=== PATIENT | female | born 1995 | race African-American/Black ===

== ENCOUNTER 2016-10-31 16:22 | Emergency (ER) | payer MEDICAID ==
--- NOTE | 2016-10-31 16:50 | ER Document Report ---
ED General - General Chief Complaint: Vaginal Discharge Stated Complaint: VAGINAL DISCHARGE W/ Mode of Arrival: Ambulatory Information source: Patient Notes: Patient is a 21 year old female who presents with 2 day history of vaginal discharge, described as thick, yellow and malodorous. She is , currently 9 months . She denies any abdominal pain, fever, chills, LOF, vaginal bleeding, contractions. Endorses normal movement. She called her OBGYN who suggested her symptoms sounded like bacterial/yeast infection and was not able to see her today, suggested she come to the ED. TRAVEL OUTSIDE OF THE [place] IN LAST 30 DAYS: No - Related Data Allergies/Adverse Reactions: No Known Allergies Allergy (Unverified 04/06/13 12:56) Past Medical History - Social History Smoking Status: Unknown if Ever Smoked Chew tobacco use (# tins/day): No Frequency of alcohol use: None Drug Abuse: None Family History: Other - mother with migraine FLOYD and irreg heart beats Neurological Medical History: Denies: Hx Seizures Renal/ Medical History: Denies: Hx Peritoneal Dialysis Surgical Hx: Negative - Immunizations Immunizations up to date: Yes Hx Diphtheria, Pertussis, Tetanus Vaccination: Yes Review of Systems - Review of Systems Constitutional: See HPI EENT: No symptoms reported Cardiovascular: No symptoms reported Respiratory: No symptoms reported Gastrointestinal: No symptoms reported Genitourinary: See HPI Female Genitourinary: See HPI Musculoskeletal: No symptoms reported Skin: No symptoms reported Hematologic/Lymphatic: No symptoms reported Neurological/Psychological: No symptoms reported Physical Exam - Vital signs Vitals: Temp Pulse Resp BP Pulse Ox 98.6 F 96 16 130/74 H 100 10/31/16 16:24 10/31/16 16:24 10/31/16 16:24 10/31/16 16:24 10/31/16 16:24 - Notes Notes: PHYSICAL EXAM: CONSTITUTIONAL: Alert and oriented, well-appearing and in no acute distress. HENT: Normocephalic, atraumatic. Trachea midline. Uvula midline. Moist mucous membranes. HEART: Regular rate and rhythm without murmurs. LUNGS: CTAB and equal. No wheezes, rales or rhonchi. GI: Gravid abdomen. Normactive bowel sounds. Nontender. No organomegaly. no CVAT. SURVEY COORDINATOR: External exam normal. No rashes or lesions. No vaginal discharge or vaginal bleeding. Cervix without lesions. No cervical motion tenderness. PSYCH: Normal mood, normal affect. SKIN: Warm and dry. Normal turgor. No rashes or lesions noted. Course - Re-evaluation Re-evalutation: 10/31/16 18:45 Patient seen and examined. Well-appearing, VSS, no respiratory distress. Gravid abdomen - no LOF, normal movement, no vaginal bleeding. With pelvic exam, no evidence of vaginal discharge. G/C pending. Wet prep was obtained but lab returned stating specimen wasn't properly prepared. Patient declined repeat exam. UA shows trace leuk est, 1 WBC, trace bacteria. Will treat with abx due to but advised to follow-up with OBGYN. At this time, will discharge with return precautions and follow-up recommendations. Verbal discharge instructions given at the bedside and opportunity for questions given. Medication warnings reviewed. Patient is in agreement with this plan and has verbalized understanding of return precautions and the need for primary care follow-up in the next 24-72 hours. - Vital Signs Vital signs: Temp Pulse Resp BP Pulse Ox 98.6 F 96 16 130/74 H 100 10/31/16 16:24 10/31/16 16:24 10/31/16 16:24 10/31/16 16:24 10/31/16 16:24 - Laboratory Laboratory results interpreted by me: 10/31/16 17:40 Ur Leukocyte Esterase TRACE H Procedures - Pelvic Exam Pelvic exam Cultures obtained: Yes Wet prep obtained: Yes - returned from lab, specimen not prepared properly. Patient declined repeat. Herpes culture obtained: No POC sent to lab: Yes Witnessed by: Daphne Mayberry RN Discharge - Discharge Clinical Impression: UTI (urinary tract infection) in in third trimester Condition: Stable Disposition: HOME, SELF-CARE Additional Instructions: We recommend that you follow-up with your OBGYN. There are swabs pending for gonorrhea and chlamydia - you will be called if these are positive. You will not be called if negative. Your exam did not reveal discharge so you were note treated at this time. URINARY TRACT INFECTION: Your evaluation indicates that you have a urinary tract infection. This is due to germs growing in the bladder. This is a common problem. This infection usually responds quickly to antibiotics. Your antibiotic should be taken exactly as prescribed. Drink plenty of fluids -- three to four quarts a day. Occasionally, a bladder anesthetic will be prescribed to help stop the feeling of urgency until the antibiotic has a chance to clear the infection. This may cause your urine to be dark orange. Certain urine infections require a culture. If the doctor obtained a culture, the results will be back in two days. You should call to see if a change in treatment is needed. A repeat urinalysis after you finish treatment is often recommended. The physician will let you know if further testing is required. Call the doctor if you develop fever, chills, flank pain, inability to urinate, or blood in the urine. ANTIBIOTIC THERAPY: You have been given an antibiotic prescription. It's important that you take all the medication, unless instructed otherwise by your physician. Failure to complete the entire course can result in relapse of your condition. Common side effects of antibiotics include nausea, intestinal cramping, or diarrhea. Women may develop vaginal yeast infections, and babies can get yeast (thrush) in the mouth following the use of antibiotics. Contact your physician if you develop significant side effects from this medication. Allergy to this antibiotic can result in hives, wheezing, faintness, or itching. If symptoms of allergy occur, stop the medication and call the doctor. CEPHALEXIN: The antibiotic you've been prescribed is a member of the cephalosporin class. This type of antibiotic covers a wide variety of infections, including those of the skin, lungs, and urinary tract. It's useful for staph infections. This antibiotic is slightly similar to the penicillin family. In rare cases , a person who is allergic to penicillin will also be allergic to this medication. If you have had a severe allergic reaction to penicillin, and have not taken this antibiotic since that time, notify your doctor. Antibiotics which cover many germs ("broad spectrum" antibiotics) are more likely to cause diarrhea or "yeast" infections. Women prone to vaginal yeast problems may suffer an attack after taking this antibiotic. In infants, oral thrush (white spots "stuck" on the cheek) or yeast diaper rash may result. See your doctor if these problems occur. Call at once if you develop itching, hives , shortness of breath, or lightheadedness. FOLLOW-UP CARE: If you have been referred to a physician for follow-up care, call the physician s office for an appointment as you were instructed or within the next two days. If you experience worsening or a significant change in your symptoms, notify the physician immediately or return to the Emergency Department at any time for re-evaluation. Prescriptions: Cephalexin Monohydrate [Keflex 500 mg Capsule] 500 mg PO Q12H 5 Days
[2016-10-31 18:31] LABS: APPEARANCE,URINE CLEAR; BILIRUBIN,URINE NEGATIVE (NEGATIVE); GLUCOSE, URINE NEGATIVE (NEGATIVE); KETONES,URINE NEGATIVE (NEGATIVE); LEUKOCYTE ESTERASE,URINE TRACE (NEGATIVE); NITRITE,URINE NEGATIVE (NEGATIVE); PROTEIN,URINE NEGATIVE (NEGATIVE); URINE SPECIFIC GRAVITY 1.005; UROBILINOGEN,URINE NEGATIVE mg/dL (<2.0)
[2016-10-31 18:58] VITALS: BP 100/55
[2016-10-31 19:48] LABS: CHLAM PCR NOT DETECTED (NOT DETECT)
== END 2016-10-31 18:56 | disposition home or self-care (01) ==
LOC: ER 16:22
DX: O23.43 Unspecified infection of urinary tract in pregnancy, third trimester (principal); N89.8 Other specified noninflammatory disorders of vagina; Z3A.40 40 weeks gestation of pregnancy
CPT/HCPCS: 81001; 87491; 87591; 99284

== ENCOUNTER 2017-01-01 12:19 | Inpatient (IN) | payer MEDICAID ==
[2017-01-01 13:40] LABS: APPEARANCE,URINE SLIGHTLY-CLOUDY; BILIRUBIN,URINE NEGATIVE (NEGATIVE); GLUCOSE, URINE NEGATIVE (NEGATIVE); KETONES,URINE NEGATIVE (NEGATIVE); LEUKOCYTE ESTERASE,URINE NEGATIVE (NEGATIVE); NITRITE,URINE NEGATIVE (NEGATIVE); PROTEIN,URINE 100 mg/dL (NEGATIVE); URINE SPECIFIC GRAVITY 1.011; UROBILINOGEN,URINE NEGATIVE mg/dL (<2.0)
[2017-01-01 13:47] LABS: ABSOLUTE LYMPHOCYTES (AUTO) 1.4 10^3/uL (0.5-4.7); ABSOLUTE MONOCYTES (AUTO) 0.4 10^3/uL (0.1-1.4); ABSOLUTE NEUT (AUTO) 4.3 10^3/uL (1.7-8.2); BASOPHILS % (AUTO) 0.7 % (0-2); EOSINOPHILS % (AUTO) 0.2 % (0-6); HEMOGLOBIN 11.1 g/dL (12.0-15.5); HGB HCT DIFFERENCE -1.7; LYMPHOCYTES % (AUTO) 22.5 % (13-45); MEAN CORPUSCULAR HEMOGLOBIN 28.1 pg (27.0-33.4); MEAN CORPUSCULAR HGB CONC 31.6 g/dL (32.0-36.0); MEAN CORPUSCULAR VOLUME 89 fl (80-97); MONOCYTES % (AUTO) 7.2 % (3-13); RED BLOOD COUNT 3.93 10^6/uL (3.72-5.28); SEGMENTED NEUTROPHILS % (AUTO) 69.4 % (42-78); WHITE BLOOD COUNT 6.1 10^3/uL (4.0-10.5)
[2017-01-01 14:04] LABS: ALANINE AMINOTRANSFERASE 53 U/L (9-52); ALBUMIN 3.4 g/dL (3.5-5.0); ALKALINE PHOSPHATASE 247 U/L (38-126); ANION GAP 10 (5-19); ASPARTATE AMINO TRANSFERASE 46 U/L (14-36); BILIRUBIN,DIRECT 0.4 mg/dL (0.0-0.4); BILIRUBIN,TOTAL 0.6 mg/dL (0.2-1.3); BLOOD UREA NITROGEN 9 mg/dL (7-20); CALCIUM 9.1 mg/dL (8.4-10.2); CARBON DIOXIDE 22 mmol/L (22-30); CHLORIDE 108 mmol/L (98-107); CREATININE RESULT 0.76 mg/dL (0.52-1.25); GLUCOSE 90 mg/dL (75-110); LDH 585 U/L (313-618); TOTAL PROTEIN 6.7 g/dL (6.3-8.2); URIC ACID 4.8 mg/dL (2.5-6.2)
[2017-01-01] MEDS ORDERED: RINGERS SOLUTION,LACTATED 1,000 ML IV ONE (14:07)
[2017-01-01 14:49] LABS: URINE BARBITURATES SCREEN NEGATIVE; URINE METHADONE SCREEN NEGATIVE; URINE OPIATES LOW NEGATIVE; URINE PHENCYCLIDINE SCREEN NEGATIVE
[2017-01-01 15:05] LABS: URINE CREATININE 103.6 mg/dL (16-327); URINE PROTEIN 145.9 mg/dL (<12)
[2017-01-01] MEDS ORDERED: MISOPROSTOL 0.2 MG TABLET ONE (15:20)
[2017-01-01] MEDS ORDERED: OXYTOCIN/NORMAL SALINE 20 UNIT/1,000 ML RTUINJ ONE (15:20)
[2017-01-01] MEDS ORDERED: LIDOCAINE 1% INJ-PF (10 MG/ML) 30 ML SDV ONE (15:20)
[2017-01-01] MEDS: RINGERS SOLUTION,LACTATED 1,000 ML IV PRN (15:27)
[2017-01-01] MEDS ORDERED: OXYTOCIN/NORMAL SALINE 1,000 ML IV PRN (15:40)
[2017-01-01] MEDS ORDERED: MAGNESIUM SULFATE 4 GM/100 ML RTUPB IV ONE (17:02)
--- NOTE | 2017-01-01 17:03 | L&D Progress Notes ---
PROGRESS NOTES Datetime Report Generated by CPN: 01/01/2017 17:03 PROGRESS NOTE Impression: Gest. HTN/PreEclampsia/Eclampsia Procedures: Artificial ROM Comment: Several severe range bps noted as well as slightly elevated transaminases. Pt still comfortable. AROM clear. Dicussed magnesium seizure prophylaxis. Cont pit induction. VAGINAL EXAM Dilatation: 4 Dilatation: 4 Effacement: 70 Effacement: 70 Station: -1 Station: -1 FETUS A FHR Category: Category I SIGNATURE SIGNATURE: [id number] Signature: with User ID: [email or web address]
[2017-01-01] MEDS ORDERED: MAGNESIUM SULFATE 500 ML IV PRN (17:05)
[2017-01-01] MEDS ORDERED: MAGNESIUM SULFATE 100 ML IV ONE (17:05)
[2017-01-01] MEDS ORDERED: EPHEDRINE SULFATE INJ 50 MG/1 ML AMPULE ONE (18:01)
[2017-01-01] MEDS ORDERED: BUPIVACAINE HCL 0.25 % INJ/PF (2.5 MG/1 ML) 30 ML VIAL ONE (18:01)
[2017-01-01] MEDS ORDERED: FENTANYL CITRATE INJ/PF 100 MCG/2 ML AMPUL ONE (18:01)
[2017-01-01] MEDS ORDERED: PHENYLEPHRINE HCL INJ/PF 10 MG/1 ML SDV ONE (18:01)
[2017-01-01] MEDS ORDERED: FENTANYL/BUPIVACAINE/NS/PF 200 MCG/100 ML RTUINJ EPI ONE (18:01)
--- NOTE | 2017-01-01 18:41 | L&D Progress Notes ---
PROGRESS NOTES Datetime Report Generated by CPN: 01/01/2017 18:41 PROGRESS NOTE Impression: Normal Progression of Labor; Gest. HTN/PreEclampsia/Eclampsia Procedures: Sterile Vag Exam Plan: Continue Present Management Comment: cont magnesium seizure prophylaxis and pit induction...pt comfortable with epidural VAGINAL EXAM Dilatation: 6 Effacement: 100 Station: 0 FETUS A FHR Category: Category I FETUS C SIGNATURE: [id number] Signature: with User ID: [email or web address]
--- NOTE | 2017-01-01 20:23 | L&D Progress Notes ---
PROGRESS NOTES Datetime Report Generated by CPN: 01/01/2017 20:22 PROGRESS NOTE Impression: Gest. HTN/PreEclampsia/Eclampsia Procedures: Intrauterine Pressure Catheter Plan: Continue Present Management Informed Consent Obtained: Vaginal Delivery; Section Delivery Comment: IUPC placed to monitor for adquacy of ctxs as no significant environmental change analyst past 1.5 hrs. Check preeclampsia labs now. Discussed r/b/a if need arises. FETUS A FHR Comments: variables noted but overall reassuring FETUS C SIGNATURE: [id number] Signature: with User ID: [email or web address]
[2017-01-01 21:27] LABS: ABSOLUTE LYMPHOCYTES (AUTO) 1.2 10^3/uL (0.5-4.7); ABSOLUTE MONOCYTES (AUTO) 0.7 10^3/uL (0.1-1.4); ABSOLUTE NEUT (AUTO) 12.5 10^3/uL (1.7-8.2); BASOPHILS % (AUTO) 0.3 % (0-2); HEMATOCRIT 35.4 % (36.0-47.0); HEMOGLOBIN 11.1 g/dL (12.0-15.5); HGB HCT DIFFERENCE -2.1; LYMPHOCYTES % (AUTO) 8.6 % (13-45); MEAN CORPUSCULAR HEMOGLOBIN 27.7 pg (27.0-33.4); MEAN CORPUSCULAR HGB CONC 31.5 g/dL (32.0-36.0); MEAN CORPUSCULAR VOLUME 88 fl (80-97); MONOCYTES % (AUTO) 5.1 % (3-13); RED BLOOD COUNT 4.02 10^6/uL (3.72-5.28)
[2017-01-01] MEDS ORDERED: CARBOPROST TROMETHAMINE INJ 250 MCG/1 ML AMPULE ONE (21:28)
[2017-01-01 21:33] LABS: PROTHROMBIN TIME 12.3 SEC (11.4-15.4)
[2017-01-01 21:34] LABS: PARTIAL THROMBOPLASTIN TIME 24.9 SEC (23.5-35.8); WHITE BLOOD COUNT 14.5 10^3/uL (4.0-10.5)
[2017-01-01 21:54] LABS: ALANINE AMINOTRANSFERASE 61 U/L (9-52); ALBUMIN 3.5 g/dL (3.5-5.0); ALKALINE PHOSPHATASE 309 U/L (38-126); ANION GAP 12 (5-19); ASPARTATE AMINO TRANSFERASE 51 U/L (14-36); BILIRUBIN,DIRECT 0.4 mg/dL (0.0-0.4); BILIRUBIN,TOTAL 0.5 mg/dL (0.2-1.3); BLOOD UREA NITROGEN 8 mg/dL (7-20); CARBON DIOXIDE 19 mmol/L (22-30); CHLORIDE 106 mmol/L (98-107); CREATININE RESULT 0.77 mg/dL (0.52-1.25); GLUCOSE 80 mg/dL (75-110); LDH 605 U/L (313-618); POTASSIUM 3.6 mmol/L (3.6-5.0); SODIUM 136.5 mmol/L (137-145); TOTAL PROTEIN 6.6 g/dL (6.3-8.2)
[2017-01-01] MEDS ORDERED: LABETALOL HCL INJ 20 MG/4 ML DISP.SYRIN IV ONE ×3 (22:41→23:45)
[2017-01-01] MEDS ORDERED: IBUPROFEN 800 MG TABLET ONE (22:57)
[2017-01-01] MEDS ORDERED: OXYTOCIN/NORMAL SALINE 20 UNIT/1,000 ML RTUINJ IV PRN (23:44)
[2017-01-01] MEDS ORDERED: ACETAMINOPHEN WITH CODEINE #3 TABLET PO PRN ×2 (23:44)
[2017-01-01] MEDS ORDERED: DIPH/PERTUSS(ACELL)/TETANUS VAC/PF 0.5 ML SYR (>=10YO) IM PRN (23:44)
[2017-01-01] MEDS ORDERED: ZOLPIDEM TARTRATE 5 MG TABLET PO PRN (23:44)
[2017-01-01] MEDS ORDERED: MEASLES,MUMPS&RUBELLA VACC/PF 0.5 ML VIAL SUBCUT PRN (23:44)
[2017-01-01] MEDS ORDERED: DIBUCAINE 1% OINTMENT 28 GM TP PRN (23:44)
[2017-01-01] MEDS ORDERED: BENZOCAINE/MENTHOL AEROSOL SPRAY 56 ML TOP PRN (23:44)
--- NOTE | 2017-01-02 00:54 | Delivery Summary ---
Del Sum A-C Datetime Report Generated by CPN: 01/02/2017 00:53 DELIVERY PERSONNEL DELIVERY PERSONNEL: [id number] Delivery Doctor:: Laura Nino MD Labor and Delivery Nurse:: Tenisha Merritt RN Nursery Nurse:: Lindsey Beltran RN MSN Field Operations Manager/CERAMICS TEST ENGINEER: JANETH PerezA MATERNAL INFORMATION Delivery Anesthesia: Epidural Medications After Delivery: Pitocin Bolus-Please Comment Meds After Delivery Comment: cytotec 1000 mcg pitocin 20 units/1000ml NSS Estimated Blood Loss (ml): 250 Maternal Complications: Other Other Maternal Complications: Pre-eclamptic on Magnesium Sulfate Provider Comments: When pt complete and pushing at +2 to +3 station, increased bleeding and late decels noted suspicous for abruption. Oxygen placed and repositioned but lates persisted. Kiwi vac applied at pulled over 2 ctxs with no pop offs to delivery of head JASWINDER.Max pressure 550. Shoulders and body delivered easily thereafter. Cord clamped and cut. Placenta spont and intact. Female infant with apgars 9 and 9. Cytotec 1000mcg placed per rectum prophylactically and iglesias cath replaced. Pt to be continued on magnesium. LABOR SUMMARY EDC: 12/26/2016 00:00 No. Babies in Womb: 1 Attempted: No Labor Anesthesia: Epidural LABOR INFORMATION Reason for Induction: Pre-Eclampsia Onset of Labor: 01/01/2017 18:37 Complete Dilatation: 01/01/2017 21:39 Oxytocin: Induction Group B Beta Strep: negative Antibiotics # of Doses: n/a Antibiotics Time of Last Dose: n/a Name of Antibiotic Given: n/a Steroids Given: None Reason Steroids Not Administered: Not Applicable MEMBRANES Membranes Rupture Method: Artificial Rupture of Membranes: 01/01/2017 16:56 Length of Rupture (hr): 5.12 Amniotic Fluid Color: Clear Amniotic Fluid Amount: Small Amniotic Fluid Odor: Normal STAGES OF LABOR Stage 1 hr: 3 Stage 1 min: 2 Stage 2 hr: 0 Stage 2 min: 24 Stage 3 hr: 0 Stage 3 min: 3 Total Time in Labor hr: 3 Total Time in Labor min: 29 VAGINAL DELIVERY Episiotomy: None Laceration Type: None BABY A INFORMATION Infant Delivery Date/Time: 01/01/2017 22:03 Method of Delivery: Vaginal Born in Route : No : N/A Forceps: N/A Vacuum Extraction: Successful Shoulder Dystocia : No ASSISTED DELIVERY BABY A Indication for Assisted Delivery: Late deceleration Catheter Prior to Procedure: Yes Vacuum Number of Pulls: 2 Vacuum Number of PopOffs: 0 Vacuum Maximum Pressure Obtained: 550 Reduce Pressure btwn Ctx: Yes Vacuum Pen Tender: kiwi Total Time Vacuum Applied: 1 min PRESENTATION/POSITION BABY A Presentation: Cephalic Cephalic Presentation: Vertex Vertex Position: Right Occipital Anterior Breech Presentation: N/A PLACENTA INFORMATION BABY A Placenta Delivery Time : 01/01/2017 22:06 Placenta Method of Delivery: Spontaneous Placenta Status: Delivered SCORES BABY A Heart Rate 1 min: >100 bpm Resp Effort 1 min: Good Cry Reflex Irritability 1 min: Cough or Sneeze or Pulls Away Muscle Tone 1 min: Active Motion Color 1 min: Body [place], Extremities Blue Resuscitation Effort 1 min: Tactile Stimulation SCORE 1 MIN: 9 Heart Rate 5 min: >100 bpm Resp Effort 5 min: Good Cry Reflex Irritability 5 min: Cough or Sneeze or Pulls Away Muscle Tone 5 min: Active Motion Color 5 min: Body [place], Extremities Blue Resuscitation Effort 5 min: Tactile Stimulation SCORE 5 MIN: 9 INFORMATION BABY A Gestational Age at Delivery: 40.6 Gestational Status: Full Term- 39- 40.6 Weeks Infant Outcome : Liveborn Infant Condition : Stable Sex: Female IDENTIFICATION BABY A Infant Verification Date/Time: 01/01/2017 22:08 ID Band Number: [id number] Mother's Name Verified: Yes RN Verifying : J , RN Additional Verifying Personnel: MUKUL Gilbert WEIGHT/LENGTH BABY A Infant Birthweight (gm): 3145 Infant Weight (lb): 6 Infant Weight (oz): 15 Infant Length (in): 20.00 Length (cm): 50.80 CORD INFORMATION BABY A No. Cord Vessels: 3 Nuchal Cord : N/A Cord Blood Taken: Yes-For Eval (Mom's Blood Type - or O+) Infant Suction: None ASSESSMENT BABY A Skin to Skin: Yes Skin to Skin Time (min): 60 SIGNATURES Signature: with User ID: [email or web address]
[2017-01-02 07:08] LABS: HEMATOCRIT 32.5 % (36.0-47.0); HEMOGLOBIN 10.5 g/dL (12.0-15.5); MEAN CORPUSCULAR HEMOGLOBIN 28.1 pg (27.0-33.4); MEAN CORPUSCULAR HGB CONC 32.2 g/dL (32.0-36.0); MEAN CORPUSCULAR VOLUME 87 fl (80-97); RED BLOOD COUNT 3.72 10^6/uL (3.72-5.28); RED CELL DISTRIBUTION WIDTH 17.1 % (11.5-14.0)
[2017-01-02 07:21] LABS: ALANINE AMINOTRANSFERASE 64 U/L (9-52); ALBUMIN 2.7 g/dL (3.5-5.0); ALKALINE PHOSPHATASE 230 U/L (38-126); ANION GAP 8 (5-19); ASPARTATE AMINO TRANSFERASE 75 U/L (14-36); BILIRUBIN,DIRECT 0.3 mg/dL (0.0-0.4); BILIRUBIN,TOTAL 0.4 mg/dL (0.2-1.3); BLOOD UREA NITROGEN 7 mg/dL (7-20); CALCIUM 7.4 mg/dL (8.4-10.2); CARBON DIOXIDE 21 mmol/L (22-30); CHLORIDE 106 mmol/L (98-107); CREATININE RESULT 0.75 mg/dL (0.52-1.25); GLUCOSE 89 mg/dL (75-110); LDH 784 U/L (313-618); POTASSIUM 3.8 mmol/L (3.6-5.0); SODIUM 135.4 mmol/L (137-145); TOTAL PROTEIN 5.4 g/dL (6.3-8.2)
[2017-01-02 07:22] LABS: PROTHROMBIN TIME 12.9 SEC (11.4-15.4)
[2017-01-02 07:23] LABS: PARTIAL THROMBOPLASTIN TIME 29.3 SEC (23.5-35.8)
[2017-01-02] MEDS ORDERED: DOCUSATE SODIUM 100 MG CAPSULE ONE ×2 (10:47→18:29)
[2017-01-02] MEDS ORDERED: PRENATAL VITAMIN W-O CA NO5/FE FUMARATE/FA CAPSULE ONE (10:49)
[2017-01-02] MEDS ORDERED: FERROUS SULFATE 325 MG TABLET PO ONE ×2 (10:50→18:29)
[2017-01-02] MEDS ORDERED: SENNOSIDES/DOCUSATE 8.6-50 MG 1 EACH TABLET ONE (10:50)
[2017-01-02] MEDS: FERROUS SULFATE 325 MG TABLET PO SCH ×2 (10:53→18:30)
[2017-01-02] MEDS: PRENATAL VITAMIN W-O CA NO5/FE FUMARATE/FA CAPSULE PO SCH (10:53)
[2017-01-02] MEDS: SENNOSIDES/DOCUSATE 8.6-50 MG 1 EACH TABLET PO SCH (10:53)
[2017-01-02] MEDS: DOCUSATE SODIUM 100 MG CAPSULE PO SCH ×2 (10:54→18:29)
[2017-01-02] MEDS ORDERED: NIFEDIPINE 30 MG TAB.ER.24 PO ONE ×2 (13:20→13:43)
[2017-01-02] MEDS ORDERED: NIFEDIPINE 30 MG TAB.ER.24 PO SCH (13:22)
[2017-01-02] MEDS: IBUPROFEN 800 MG TABLET PO SCH ×2 (13:30→13:44)
[2017-01-02] MEDS ORDERED: IBUPROFEN 800 MG TABLET ONE (13:43)
[2017-01-02] MEDS ORDERED: HYDRALAZINE HCL INJ/PF 20 MG/1 ML SDV ONE (14:17)
[2017-01-02] MEDS ORDERED: HYDRALAZINE HCL INJ/PF 20 MG/1 ML SDV IV ONE (14:43)
[2017-01-02 15:44] LABS: ABSOLUTE LYMPHOCYTES (AUTO) 1.4 10^3/uL (0.5-4.7); ABSOLUTE MONOCYTES (AUTO) 0.9 10^3/uL (0.1-1.4); BASOPHILS % (AUTO) 0.2 % (0-2); HEMATOCRIT 32.8 % (36.0-47.0); HEMOGLOBIN 10.6 g/dL (12.0-15.5); LYMPHOCYTES % (AUTO) 12.3 % (13-45); MEAN CORPUSCULAR HEMOGLOBIN 28.1 pg (27.0-33.4); MEAN CORPUSCULAR HGB CONC 32.1 g/dL (32.0-36.0); MEAN CORPUSCULAR VOLUME 88 fl (80-97); MONOCYTES % (AUTO) 7.9 % (3-13); RED BLOOD COUNT 3.75 10^6/uL (3.72-5.28); RED CELL DISTRIBUTION WIDTH 17.3 % (11.5-14.0); SEGMENTED NEUTROPHILS % (AUTO) 79.6 % (42-78); WHITE BLOOD COUNT 11.3 10^3/uL (4.0-10.5)
[2017-01-02 15:58] LABS: ALANINE AMINOTRANSFERASE 74 U/L (9-52); ALBUMIN 2.7 g/dL (3.5-5.0); ALKALINE PHOSPHATASE 220 U/L (38-126); ANION GAP 6 (5-19); ASPARTATE AMINO TRANSFERASE 96 U/L (14-36); BILIRUBIN,DIRECT 0.3 mg/dL (0.0-0.4); BILIRUBIN,TOTAL 0.9 mg/dL (0.2-1.3); BLOOD UREA NITROGEN 6 mg/dL (7-20); CALCIUM 7.6 mg/dL (8.4-10.2); CARBON DIOXIDE 23 mmol/L (22-30); CHLORIDE 107 mmol/L (98-107); CREATININE RESULT 0.76 mg/dL (0.52-1.25); GLUCOSE 71 mg/dL (75-110); POTASSIUM 4.1 mmol/L (3.6-5.0); SODIUM 135.9 mmol/L (137-145); TOTAL PROTEIN 5.5 g/dL (6.3-8.2); URIC ACID 4.9 mg/dL (2.5-6.2)
[2017-01-02 20:03] LABS: ABSOLUTE LYMPHOCYTES (AUTO) 1.6 10^3/uL (0.5-4.7); ABSOLUTE MONOCYTES (AUTO) 0.9 10^3/uL (0.1-1.4); ABSOLUTE NEUT (AUTO) 8.4 10^3/uL (1.7-8.2); BASOPHILS % (AUTO) 0.3 % (0-2); HEMOGLOBIN 10.6 g/dL (12.0-15.5); HGB HCT DIFFERENCE -1.2; LYMPHOCYTES % (AUTO) 14.4 % (13-45); MEAN CORPUSCULAR HEMOGLOBIN 28.4 pg (27.0-33.4); MEAN CORPUSCULAR HGB CONC 32.2 g/dL (32.0-36.0); MEAN CORPUSCULAR VOLUME 88 fl (80-97); RED BLOOD COUNT 3.74 10^6/uL (3.72-5.28); RED CELL DISTRIBUTION WIDTH 17.2 % (11.5-14.0); SEGMENTED NEUTROPHILS % (AUTO) 77.3 % (42-78); WHITE BLOOD COUNT 10.9 10^3/uL (4.0-10.5)
[2017-01-02 20:21] LABS: ALANINE AMINOTRANSFERASE 71 U/L (9-52); ALBUMIN 2.6 g/dL (3.5-5.0); ALKALINE PHOSPHATASE 194 U/L (38-126); ANION GAP 8 (5-19); ASPARTATE AMINO TRANSFERASE 86 U/L (14-36); BILIRUBIN,DIRECT 0.3 mg/dL (0.0-0.4); BILIRUBIN,TOTAL 0.7 mg/dL (0.2-1.3); BLOOD UREA NITROGEN 9 mg/dL (7-20); CALCIUM 7.9 mg/dL (8.4-10.2); CARBON DIOXIDE 22 mmol/L (22-30); CHLORIDE 106 mmol/L (98-107); CREATININE RESULT 0.88 mg/dL (0.52-1.25); GLUCOSE 82 mg/dL (75-110); POTASSIUM 4.1 mmol/L (3.6-5.0); SODIUM 136.3 mmol/L (137-145); TOTAL PROTEIN 5.3 g/dL (6.3-8.2); URIC ACID 5.4 mg/dL (2.5-6.2)
[2017-01-03] MEDS: RINGERS SOLUTION,LACTATED 1,000 ML IV PRN (00:08)
[2017-01-03 01:01] LABS: ABSOLUTE BASOPHILS # (AUTO) 0.1 10^3/uL (0.0-0.2); ABSOLUTE LYMPHOCYTES (AUTO) 2.1 10^3/uL (0.5-4.7); ABSOLUTE MONOCYTES (AUTO) 0.9 10^3/uL (0.1-1.4); ABSOLUTE NEUT (AUTO) 8.3 10^3/uL (1.7-8.2); BASOPHILS % (AUTO) 0.6 % (0-2); HEMATOCRIT 33.3 % (36.0-47.0); HEMOGLOBIN 10.6 g/dL (12.0-15.5); HGB HCT DIFFERENCE -1.5; LYMPHOCYTES % (AUTO) 18.5 % (13-45); MEAN CORPUSCULAR HEMOGLOBIN 28.2 pg (27.0-33.4); MEAN CORPUSCULAR VOLUME 88 fl (80-97); MONOCYTES % (AUTO) 7.8 % (3-13); RED BLOOD COUNT 3.77 10^6/uL (3.72-5.28); RED CELL DISTRIBUTION WIDTH 17.2 % (11.5-14.0); SEGMENTED NEUTROPHILS % (AUTO) 73.1 % (42-78); WHITE BLOOD COUNT 11.4 10^3/uL (4.0-10.5)
[2017-01-03 01:19] LABS: ALANINE AMINOTRANSFERASE 70 U/L (9-52); ALBUMIN 2.6 g/dL (3.5-5.0); ALKALINE PHOSPHATASE 186 U/L (38-126); ANION GAP 6 (5-19); ASPARTATE AMINO TRANSFERASE 79 U/L (14-36); BILIRUBIN,DIRECT 0.3 mg/dL (0.0-0.4); BILIRUBIN,TOTAL 0.8 mg/dL (0.2-1.3); BLOOD UREA NITROGEN 11 mg/dL (7-20); CALCIUM 7.6 mg/dL (8.4-10.2); CARBON DIOXIDE 24 mmol/L (22-30); CHLORIDE 107 mmol/L (98-107); CREATININE RESULT 0.85 mg/dL (0.52-1.25); GLUCOSE 82 mg/dL (75-110); SODIUM 136.9 mmol/L (137-145); TOTAL PROTEIN 4.9 g/dL (6.3-8.2); URIC ACID 4.9 mg/dL (2.5-6.2)
[2017-01-03] MEDS ORDERED: NIFEDIPINE 30 MG TAB.ER.24 PO ONE ×2 (02:59→03:10)
--- NOTE | 2017-01-03 05:58 | Admission Physical ---
Datetime Report Generated by CPN: 01/03/2017 05:58 CURRENT ADMISSION Hx Assessment: The History has been Reviewed and is Current Chief Complaint: Signs/Symptoms Gestational HTN Indication for Induction- Other: preeclampsia vs ghtn Admit Plan: Initiate Labor Induction Protocol ALLERGIES Medication Allergies: No Medication Allergies: No Known Allergies (01/01/2017) Medication Allergies: No Known Allergies (04/06/2013) Latex: No Latex Allergies OBSTETRICAL HISTORY EDC: 12/26/2016 00:00 : 1 Para: 0 Term: 0 : 0 SAB: 0 IAB: 0 Ectopic: 0 Livin Cesareans: 0 VBACs: 0 Multiple Births: 0 Gestational Diabetes: No Rh Sensitization: No Incompetent Cervix: No HARVEY: No Infertility: No ART Treatment: No Uterine Anomaly: No IUGR: No Hx Previous C/S: No Macrosomia: No Hx Loss/Stillborn: No PIH: No Hx : No Placenta Previa/Abruption: No Depression/PP Depression: No PTL/PROM: No Post Hemorrhage: No Current Procedures: Ultrasound; NST Obstetrical History Comments: G1: Current SEE RECORDS Alcohol: No Marijuana : No Cocaine: No Other Illicit Drugs: No Cigarettes: Never Smoker. [id number] MEDICAL HISTORY Diabetes: No Blood Transfusion: No Pulmonary Disease (Asthma, TB): No Breast Disease: No Hypertension: No Manager Drilling Surgery: No Heart Disease: No Hosp/Surgery: No Autoimmune Disorder: No Anesthetic Complications: No Kidney Disease: No Abnormal Pap Smear: No Neuro/Epilepsy: No Psychiatric Disorders: No Other Medical Diseases: No Hepatitis/Liver Disease: No Significant Family History: No Varicosities/Phlebitis: No Trauma/Violence : No Thyroid Dysfunction: No INFECTIOUS HISTORY Gonorrhea: No Genital Herpes: No Chlamydia: No Tuberculosis: No Syphilis: No Hepatitis: No HIV/AIDS Exposure: No Rash or Viral Illness: No HPV: No PHYSICAL EXAM General: Normal HEENT: Normal Neurologic: Normal Thyroid: Normal Heart: Normal Lungs: Normal Breast: Normal Back: Normal Abdomen: Normal Genitourinary Exam: Normal Extremities: Normal DTRs: Normal Pelvic Type: Adequate Physical Exam Comments: gbs neg efw 6 1/2 pounds VAGINAL EXAM Dilatation: 6 Dilatation: 4 Dilatation: 4 Effacement: 100 Effacement: 70 Effacement: 70 Station: 0 Station: -1 Station: -1 FETUS A EGA: 40.6 FHR Category: Category I Admit Comment: IUP at 40.6 wks with ghtn vs preeclampsia-plan pit induction...magnesium if recurrent severe range pressures PLANS FOR LABOR AND DELIVERY Labor and Delivery: None Pain Management: Epidural Feeding Preference: Breast Benefit of Breast Feed Discussed: Yes Circumcision: N/A INFORMED CONSENT Informed Consent Obtained: Vaginal Delivery; Section Delivery Signature: with User ID: [email or web address]
[2017-01-03] MEDS: IBUPROFEN 800 MG TABLET PO SCH ×4 (06:44→21:55)
[2017-01-03 09:33] LABS: HEMATOCRIT 32.6 % (36.0-47.0); HEMOGLOBIN 10.5 g/dL (12.0-15.5); HGB HCT DIFFERENCE -1.1; MEAN CORPUSCULAR HGB CONC 32.2 g/dL (32.0-36.0); MEAN CORPUSCULAR VOLUME 87 fl (80-97); RED BLOOD COUNT 3.75 10^6/uL (3.72-5.28); RED CELL DISTRIBUTION WIDTH 17.1 % (11.5-14.0); WHITE BLOOD COUNT 11.1 10^3/uL (4.0-10.5)
[2017-01-03 09:34] LABS: ALANINE AMINOTRANSFERASE 78 U/L (9-52); ALBUMIN 2.7 g/dL (3.5-5.0); ALKALINE PHOSPHATASE 193 U/L (38-126); ANION GAP 7 (5-19); ASPARTATE AMINO TRANSFERASE 89 U/L (14-36); BILIRUBIN,DIRECT 0.3 mg/dL (0.0-0.4); BILIRUBIN,TOTAL 0.8 mg/dL (0.2-1.3); BLOOD UREA NITROGEN 9 mg/dL (7-20); CALCIUM 8.3 mg/dL (8.4-10.2); CARBON DIOXIDE 24 mmol/L (22-30); CHLORIDE 106 mmol/L (98-107); CREATININE RESULT 0.78 mg/dL (0.52-1.25); GLUCOSE 71 mg/dL (75-110); LDH 1283 U/L (313-618); POTASSIUM 4.2 mmol/L (3.6-5.0); SODIUM 137.1 mmol/L (137-145); TOTAL PROTEIN 5.5 g/dL (6.3-8.2); URIC ACID 4.9 mg/dL (2.5-6.2)
[2017-01-03] MEDS: SENNOSIDES/DOCUSATE 8.6-50 MG 1 EACH TABLET PO SCH (10:19)
[2017-01-03] MEDS: PRENATAL VITAMIN W-O CA NO5/FE FUMARATE/FA CAPSULE PO SCH (10:20)
[2017-01-03] MEDS: FERROUS SULFATE 325 MG TABLET PO SCH ×2 (10:20→18:20)
[2017-01-03] MEDS: DOCUSATE SODIUM 100 MG CAPSULE PO SCH ×2 (10:20→18:20)
--- NOTE | 2017-01-03 13:42 | PDOC PROGRESS REPORT ---
Subjective-OB Subjective: Post Delivery Day: 21 year old. Denies any needs at this time pt sitting up denies headaches, blurred vision dtrs +2 no clonus room is quiet and dim reviewed labs with Dr. Nino and agrees labs should be repeated in AM platelets 97 LDH increased VSS ff@u-1 no clots precautions reviewed bed well padded anticipate d/c in AM Physical Exam (OB) Vital Signs: Temp Pulse Resp BP Pulse Ox 98.1 F 75 17 125/79 99 01/03/17 11:42 01/03/17 11:42 01/03/17 11:42 01/03/17 11:42 01/03/17 11:42 Intake & Output 01/02/17 01/03/17 01/04/17 06:59 06:59 06:59 Weight 74.1 kg - Lochia Lochia Amount: Scant < 10 ml Lochia Color: Rubra/Red - Abdomen Description: Soft, Flat Hernia Present: No Fundal Description: Firm, Midline Fundal Height: u/u - u/2 Objective-Diagnostic Laboratory: 01/03/17 08:50 01/03/17 08:50 01/02/17 01/02/17 01/02/17 14:51 14:51 19:00 WBC 11.3 H 10.9 H RBC 3.75 3.74 Hgb 10.6 L 10.6 L Hct 32.8 L 33.0 L MCV 88 88 MCH 28.1 28.4 MCHC 32.1 32.2 RDW 17.3 H 17.2 H Plt Count 121 L 114 L Seg Neutrophils % 79.6 H 77.3 Lymphocytes % 12.3 L 14.4 Monocytes % 7.9 8.0 Eosinophils % 0.0 0.0 Basophils % 0.2 0.3 Absolute Neutrophils 9.0 H 8.4 H Absolute Lymphocytes 1.4 1.6 Absolute Monocytes 0.9 0.9 Absolute Eosinophils 0.0 0.0 Absolute Basophils 0.0 0.0 Sodium 135.9 L Potassium 4.1 Chloride 107 Carbon Dioxide 23 Anion Gap 6 BUN 6 L Creatinine 0.76 Est GFR ( Amer) > 60 Est GFR (Non-Af Amer) > 60 Glucose 71 L Uric Acid 4.9 Calcium 7.6 L Total Bilirubin 0.9 AST 96 H ALT 74 H Alkaline Phosphatase 220 H Total Protein 5.5 L Albumin 2.7 L 01/02/17 01/03/17 01/03/17 19:00 00:53 00:53 WBC 11.4 H RBC 3.77 Hgb 10.6 L Hct 33.3 L MCV 88 MCH 28.2 MCHC 32.0 RDW 17.2 H Plt Count 109 L Seg Neutrophils % 73.1 Lymphocytes % 18.5 Monocytes % 7.8 Eosinophils % 0.0 Basophils % 0.6 Absolute Neutrophils 8.3 H Absolute Lymphocytes 2.1 Absolute Monocytes 0.9 Absolute Eosinophils 0.0 Absolute Basophils 0.1 Sodium 136.3 L 136.9 L Potassium 4.1 4.0 Chloride 106 107 Carbon Dioxide 22 24 Anion Gap 8 6 BUN 9 11 Creatinine 0.88 0.85 Est GFR ( Amer) > 60 > 60 Est GFR (Non-Af Amer) > 60 > 60 Glucose 82 82 Uric Acid 5.4 4.9 Calcium 7.9 L 7.6 L Total Bilirubin 0.7 0.8 AST 86 H 79 H ALT 71 H 70 H Alkaline Phosphatase 194 H 186 H Total Protein 5.3 L 4.9 L Albumin 2.6 L 2.6 L 01/03/17 01/03/17 08:50 08:50 WBC 11.1 H RBC 3.75 Hgb 10.5 L Hct 32.6 L MCV 87 MCH 28.0 MCHC 32.2 RDW 17.1 H Plt Count 97 L Seg Neutrophils % Lymphocytes % Monocytes % Eosinophils % Basophils % Absolute Neutrophils Absolute Lymphocytes Absolute Monocytes Absolute Eosinophils Absolute Basophils Sodium 137.1 Potassium 4.2 Chloride 106 Carbon Dioxide 24 Anion Gap 7 BUN 9 Creatinine 0.78 Est GFR ( Amer) > 60 Est GFR (Non-Af Amer) > 60 Glucose 71 L Uric Acid 4.9 Calcium 8.3 L Total Bilirubin 0.8 AST 89 H ALT 78 H Alkaline Phosphatase 193 H Total Protein 5.5 L Albumin 2.7 L
[2017-01-04] MEDS: IBUPROFEN 800 MG TABLET PO SCH (05:39)
[2017-01-04] MEDS: DOCUSATE SODIUM 100 MG CAPSULE PO SCH (09:50)
[2017-01-04] MEDS: FERROUS SULFATE 325 MG TABLET PO SCH (09:51)
[2017-01-04] MEDS: SENNOSIDES/DOCUSATE 8.6-50 MG 1 EACH TABLET PO SCH (09:51)
[2017-01-04] MEDS: PRENATAL VITAMIN W-O CA NO5/FE FUMARATE/FA CAPSULE PO SCH (09:51)
[2017-01-04 09:52] LABS: HEMATOCRIT 34.5 % (36.0-47.0); HGB HCT DIFFERENCE -1.5; MEAN CORPUSCULAR HEMOGLOBIN 28.4 pg (27.0-33.4); MEAN CORPUSCULAR VOLUME 89 fl (80-97); RED BLOOD COUNT 3.89 10^6/uL (3.72-5.28); RED CELL DISTRIBUTION WIDTH 17.3 % (11.5-14.0); WHITE BLOOD COUNT 10.7 10^3/uL (4.0-10.5)
[2017-01-04] MEDS ORDERED: NIFEDIPINE 30 MG TAB.ER.24 PO SCH (10:00)
--- NOTE | 2017-01-04 10:00 | PDOC PROGRESS REPORT ---
Subjective-OB Subjective: Post Delivery Day: 21 year old. Denies any needs at this time Pt doing well, talking on phone, wants to go home, scant bleeding, feels good, voiding, eating well Physical Exam (OB) Vital Signs: Temp Pulse Resp BP Pulse Ox 98.4 F 70 17 141/90 H 99 01/04/17 07:39 01/04/17 07:39 01/04/17 07:39 01/04/17 07:39 01/04/17 07:39 - PIH/Pre-Eclampsia DTR's: 2 + Clonus: Negative Headache: Absent Epigastric Pain: No Visual Changes: No - Lochia Lochia Amount: Small 10-25 ml Lochia Color: Rubra/Red - Abdomen Description: Soft, Round Hernia Present: No Fundal Description: Firm, Midline Fundal Height: u/u - u/2 Objective-Diagnostic Laboratory: 01/04/17 09:26 01/03/17 01/04/17 08:50 09:26 WBC 11.1 H 10.7 H RBC 3.75 3.89 Hgb 10.5 L 11.0 L Hct 32.6 L 34.5 L MCV 87 89 MCH 28.0 28.4 MCHC 32.2 32.0 RDW 17.1 H 17.3 H Plt Count 97 L 103 L Assessment and Plan(PN) - Assessment and Plan (1) Vacuum extraction, delivered, current hospitalization Is this a current diagnosis for this admission?: Yes (2) Pre-eclampsia Qualifiers: Trimester: third trimester Qualified Code(s): O14.93 - Unspecified pre-eclampsia, third trimester Is this a current diagnosis for this admission?: Yes - Time Spent with Patient Time with patient: Less than 15 minutes Medications reviewed and adjusted accordingly: Yes - Disposition Anticipated Discharge: Home Within: within 24 hours - Dr. Nunez visited pt, may go this afternoon, new labs drawn today, will wait for results
[2017-01-04 10:04] LABS: ALANINE AMINOTRANSFERASE 76 U/L (9-52); ALBUMIN 3.2 g/dL (3.5-5.0); ALKALINE PHOSPHATASE 189 U/L (38-126); ANION GAP 9 (5-19); ASPARTATE AMINO TRANSFERASE 63 U/L (14-36); BILIRUBIN,DIRECT 0.3 mg/dL (0.0-0.4); BILIRUBIN,TOTAL 0.6 mg/dL (0.2-1.3); BLOOD UREA NITROGEN 12 mg/dL (7-20); CALCIUM 9.1 mg/dL (8.4-10.2); CARBON DIOXIDE 25 mmol/L (22-30); CHLORIDE 106 mmol/L (98-107); CREATININE RESULT 0.78 mg/dL (0.52-1.25); GLUCOSE 65 mg/dL (75-110); LDH 811 U/L (313-618); POTASSIUM 4.4 mmol/L (3.6-5.0); SODIUM 140.1 mmol/L (137-145); TOTAL PROTEIN 6.3 g/dL (6.3-8.2)
--- NOTE | 2017-01-04 10:29 | PDOC PROGRESS REPORT ---
Subjective-OB Subjective: Post Delivery Day: 21 year old. Denies any needs at this time doing well Physical Exam (OB) Vital Signs: Temp Pulse Resp BP Pulse Ox 98.4 F 70 17 141/90 H 99 01/04/17 07:39 01/04/17 07:39 01/04/17 07:39 01/04/17 07:39 01/04/17 07:39 - PIH/Pre-Eclampsia DTR's: 2 + Clonus: Negative Headache: Absent Epigastric Pain: No Visual Changes: No - Lochia Lochia Amount: Small 10-25 ml Lochia Color: Rubra/Red - Abdomen Description: Soft, Round Hernia Present: No Fundal Description: Firm, Midline Fundal Height: u/u - u/2 Objective-Diagnostic Laboratory: 01/04/17 09:26 01/04/17 09:26 01/04/17 01/04/17 09:26 09:26 WBC 10.7 H RBC 3.89 Hgb 11.0 L Hct 34.5 L MCV 89 MCH 28.4 MCHC 32.0 RDW 17.3 H Plt Count 103 L Sodium 140.1 Potassium 4.4 Chloride 106 Carbon Dioxide 25 Anion Gap 9 BUN 12 Creatinine 0.78 Est GFR ( Amer) > 60 Est GFR (Non-Af Amer) > 60 Glucose 65 L Calcium 9.1 Total Bilirubin 0.6 AST 63 H ALT 76 H Alkaline Phosphatase 189 H Total Protein 6.3 Albumin 3.2 L Assessment and Plan(PN) - Assessment and Plan (1) Vacuum extraction, delivered, current hospitalization Is this a current diagnosis for this admission?: Yes (2) Pre-eclampsia Qualifiers: Trimester: third trimester Qualified Code(s): O14.93 - Unspecified pre-eclampsia, third trimester Is this a current diagnosis for this admission?: Yes - Time Spent with Patient Medications reviewed and adjusted accordingly: Yes - Disposition Anticipated Discharge: Home Within: Other - d/c today. labs improving, Dr. Enrique gimenez d/c
--- NOTE | 2017-01-04 10:35 | PDOC DISCHARGE SUMMARY ---
Final Diagnosis Discharge Date: 01/04/17 - Final Diagnosis (1) Vacuum extraction, delivered, current hospitalization Is this a current diagnosis for this admission?: Yes (2) Pre-eclampsia Is this a current diagnosis for this admission?: Yes Discharge Data - Discharge Medication Home Medications: Acetaminophen [Tylenol 325 mg Tablet] 650 mg PO ASDIR PRN 01/01/17 Ferrous Sulfate [Iron] 1 tab PO BID 01/01/17 Pnv No.122/Iron/Folic Acid [ Multi Tablet] 1 tab PO DAILY 01/01/17 Ferrous Sulfate [Feosol 325 mg Tablet] 325 mg PO BID #0 tablet 01/04/17 Nifedipine [Procardia XL 30 mg Tablet] 60 mg PO DAILY #60 tab.er.24 01/04/17 Pnv W-O Ca No5/Fe Fumarate/FA [-U Multiple Vitamin Capsule] 1 cap PO DAILY #0 capsule 01/04/17 Gestational Age: 40.6 Reason(s) for Admission: Induction of Labor, Obstetric Complications Admission Note: pre-eclampsia Procedures: NST, Ultrasound Intrapartum Procedure(s): Spontaneous Vaginal Delivery, Vacuum Extraction - Data Baby 1 Female at 1 minute: 9 at 5 minutes: 9 Weight: 3.147 kg Home with Mother: Yes Complications: No - Diagnosis Test Laboratory: Temp Pulse Resp BP Pulse Ox 98.4 F 70 17 141/90 H 99 01/04/17 07:39 01/04/17 07:39 01/04/17 07:39 01/04/17 07:39 01/04/17 07:39 01/01/17 01/01/17 01/01/17 12:50 13:35 21:15 RBC 3.93 4.02 Hgb 11.1 L 11.1 L Hct 35.0 L 35.4 L Urine Opiates Screen NEGATIVE 01/02/17 01/02/17 01/02/17 06:59 14:51 19:00 RBC 3.72 3.75 3.74 Hgb 10.5 L 10.6 L 10.6 L Hct 32.5 L 32.8 L 33.0 L Urine Opiates Screen 01/03/17 01/03/17 01/04/17 00:53 08:50 09:26 RBC 3.77 3.75 3.89 Hgb 10.6 L 10.5 L 11.0 L Hct 33.3 L 32.6 L 34.5 L Urine Opiates Screen - Discharge information/Instructions Discharge Activity: Activity As Tolerated, No Lifting Over 10 Pounds, No Lifting /Push/Pulling, Pelvic Rest Discharge Diet: As Tolerated, Regular Disposition: HOME, SELF-CARE Follow up with: [facility] in: 1, Weeks - check BP 1 week, rev S&S to report
[2017-01-04 12:25] VITALS: BP 150/96
== END 2017-01-04 13:05 | disposition home or self-care (01) | DRG 775 ==
LOC: LC 12:19 → LR 14:26 → 2S 01-03 05:57
PROVIDERS: ADMIT Specialist; ATTEND Specialist
PROC: 10D07Z6 Extraction of Products of Conception, Vacuum, Via Natural or Artificial Opening (ICD-10-PCS; principal; 2017-01-01)
PROC: 10907ZC Drainage of Amniotic Fluid, Therapeutic from Products of Conception, Via Natural or Artificial Opening (ICD-10-PCS; 2017-01-01)
DX: O14.94 Unspecified pre-eclampsia, complicating childbirth (principal); Z3A.40 40 weeks gestation of pregnancy; Z37.0 Single live birth
CPT/HCPCS: 36415; 80053; 80307; 81001; 82570; 83615; 84156; 84550; 85025; 85027; 85610; 85730; 86592; 86850; 86900; 86901; 88307; J0360; J2370; J2590; J3010; J3475; J3490

== ENCOUNTER 2017-04-24 21:34 | Emergency (ER) | payer OTHER ==
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
[2017-04-24 23:35] VITALS: BP 119/87
== END 2017-04-24 23:35 | disposition home or self-care (01) ==
LOC: ER 21:34
DX: S16.1XXA Strain of muscle, fascia and tendon at neck level, initial encounter (principal); V49.40XA Driver injured in collision with unspecified motor vehicles in traffic accident, initial encounter
CPT/HCPCS: 99283

== ENCOUNTER 2018-07-01 20:27 | Emergency (ER) | payer MEDICAID, OTHER ==
[2018-07-01] MEDS ORDERED: ACETAMINOPHEN 325 MG TABLET PO ONE (21:38)
--- NOTE | 2018-07-01 21:47 | RADIOLOGY REPORT (SQ) ---
EXAM DESCRIPTION: XR ANKLE 3 OR MORE VIEWS COMPLETED DATE/TME: 07/01/2018 20:49 CLINICAL HISTORY: 23 years, Female, pain Findings: There is a minimally displaced distal fibula oblique fracture noted extending to the ankle mortise. Mild widening of the ankle mortise medially. Moderate diffuse soft tissue swelling. IMPRESSION: Minimally displaced distal fibula fracture with mild disruption of the ankle mortise.
[2018-07-01] MEDS ORDERED: ONDANSETRON 4 MG TAB.RAPDIS PO ONE (21:52)
[2018-07-01] MEDS ORDERED: HYDROCODONE/ACETAMINOPHEN 5-325 MG TABLET PO ONE (21:52)
--- NOTE | 2018-07-01 22:04 | ER Document Report ---
HPI - HPI Patient complains to provider of: left ankle injury Time Seen by Provider: 07/01/18 21:52 Pain Level: 4 Context: Patient is a 23-year-old female that comes to the emergency department for chief complaint of left ankle injury, she states she inverted her ankle when trying to go downstairs, she slipped on the stairs but she denies falling or having a different injury. She denies any other locations of pain. LMP within the past month. Denies any daily medications or medical problems. - REPRODUCTIVE Reproductive: DENIES: : Past Medical History - General Information source: Patient - Social History Smoking Status: Never Smoker Drug Abuse: None Lives with: Family Family History: None, Other - mother with migraine FLOYD and irreg heart beats - Medical History Medical History: Negative Neurological Medical History: Denies: Hx Cerebrovascular Accident, Hx Migraine, Hx Seizures Renal/ Medical History: Denies: Hx Peritoneal Dialysis Surgical Hx: Negative - Immunizations Immunizations up to date: Yes Hx Diphtheria, Pertussis, Tetanus Vaccination: Yes Vertical Provider Document - CONSTITUTIONAL General Appearance: WD/WN, No Apparent Distress - INFECTION CONTROL TRAVEL OUTSIDE OF THE [place] IN LAST 30 DAYS: No - HEENT HEENT: Atraumatic, Normocephalic - NECK Neck: Normal Inspection - RESPIRATORY Respiratory: Breath Sounds Normal, No Respiratory Distress - CARDIOVASCULAR Cardiovascular: Regular Rate, Regular Rhythm - GI/ABDOMEN Gastrointestinal: Abdomen Soft, Abdomen Non-Tender - BACK Back: Normal Inspection - MUSCULOSKELETAL/EXTREMETIES Musculoskeletal/Extremeties: MAEW, FROM, Tender - Tender over the lateral malleolus with swelling, slightly tender over the dorsum of the foot and at the distal tibia anteriorly. No open wounds. Pain with range of motion of the ankle. Normal capillary refill and sensation. Normal proximal tibia, knee, hip exam. - NEURO Level of Consciousness: Awake, Alert, Appropriate - DERM Integumentary: Warm, Dry, No Rash Course - Vital Signs Vital signs: Temp Pulse Resp BP Pulse Ox 98.5 F 70 18 122/76 100 07/01/18 21:35 07/01/18 21:35 07/01/18 21:35 07/01/18 21:35 07/01/18 21:35 - Diagnostic Test Radiology reviewed: Image reviewed, Reports reviewed Procedures - Immobilization left ankle Pre-Proc Neuro Vasc Exam: Normal Immobilizer type: Posterior ankle Performed by: PCT Post-Proc Neuro Vasc Exam: Normal Alignment checked and good: Yes Discharge - Discharge Clinical Impression: Left ankle injury Qualifiers: Encounter type: initial encounter Qualified Code(s): S99.912A - Unspecified injury of left ankle, initial encounter Fibula fracture Qualifiers: Encounter type: initial encounter Fibula location: distal Fracture type: closed Fracture morphology: unspecified fracture morphology Laterality: left Qualified Code(s): S82.832A - Other fracture of upper and lower end of left fibula, initial encounter for closed fracture Condition: Stable Disposition: HOME, SELF-CARE Additional Instructions: You have a fracture of the part of your ankle that includes the fibula bone. Wear the splint, use the crutches, call tomorrow to follow-up closely with the orthopedic referral for additional management, please follow-up because this may require surgical repair. Take the pain medication if needed. Return if you worsen including severe swelling or pain. Prescriptions: Hydrocodone/Acetaminophen [Kent 5-325 mg Tablet] 1 - 2 tab PO ASDIR #10 tablet Forms: Return to Work Referrals: SHAWNA IRIZARRY MD [ACTIVE STAFF] - Follow up in 3-5 days
[2018-07-01] MEDS ORDERED: HYDROCODONE/ACETAMINOPHEN 5-325 MG (6 TAB/ER DISP) PO PRN (22:05)
[2018-07-01 22:58] VITALS: BP 118/72
== END 2018-07-01 23:11 | disposition home or self-care (01) ==
LOC: ER 20:27
DX: S82.432A Displaced oblique fracture of shaft of left fibula, initial encounter for closed fracture (principal); X50.0XXA Overexertion from strenuous movement or load, initial encounter
CPT/HCPCS: 99283; 73610; 29515; S0119

== ENCOUNTER 2018-07-15 07:51 | Day surgery (SDC) | payer MEDICAID ==
[~2018-07-15 07:51] MED LIST: CEFAZOLIN SODIUM 2 GM in DEXTROSE 5%-WATER 100 ML IV PRN
[2018-07-15 08:46] LABS: HEMATOCRIT 38.6 % (36.0-47.0); HEMOGLOBIN 12.8 g/dL (12.0-15.5); MEAN CORPUSCULAR HEMOGLOBIN 29.5 pg (27.0-33.4); MEAN CORPUSCULAR HGB CONC 33.2 g/dL (32.0-36.0); MEAN CORPUSCULAR VOLUME 89 fl (80-97); PLATELET COUNT 253 10^3/uL (150-450); RED BLOOD COUNT 4.35 10^6/uL (3.72-5.28); RED CELL DISTRIBUTION WIDTH 13.4 % (11.5-14.0); WHITE BLOOD COUNT 4.1 10^3/uL (4.0-10.5)
[2018-07-15 08:57] LABS: ANION GAP 9 (5-19); BLOOD UREA NITROGEN 18 mg/dL (7-20); CALCIUM 9.8 mg/dL (8.4-10.2); CARBON DIOXIDE 26 mmol/L (22-30); CHLORIDE 108 mmol/L (98-107); GLUCOSE 97 mg/dL (75-110); POTASSIUM 4.1 mmol/L (3.6-5.0); SODIUM 143.1 mmol/L (137-145)
[2018-07-15] MEDS ORDERED: FENTANYL CITRATE INJ/PF 100 MCG/2 ML AMPUL ONE (11:03)
[2018-07-15] MEDS ORDERED: DEXAMETHASONE SOD PHOSPHATE INJ 4 MG/1 ML VIAL ONE (11:04)
[2018-07-15] MEDS ORDERED: MIDAZOLAM 2 MG/2 ML INJ ONE (11:04)
[2018-07-15] MEDS ORDERED: EPHEDRINE SULFATE INJ 50 MG/1 ML AMPULE ONE (11:04)
[2018-07-15] MEDS ORDERED: HYDROMORPHONE HCL INJ/PF 2 MG/ML AMPULE ONE (11:04)
[2018-07-15] MEDS ORDERED: ONDANSETRON HCL INJ/PF 4 MG/2 ML SDV ONE (11:04)
[2018-07-15] MEDS ORDERED: PROPOFOL INJ 200 MG/20 ML VIAL IV ONE (11:05)
[2018-07-15] MEDS ORDERED: LIDOCAINE 1% INJ-PF (10 MG/ML) 30 ML SDV ONE (11:13)
[2018-07-15] MEDS ORDERED: BUPIVACAINE HCL 0.25% /EPINEPHRINE INJ/PF 30 ML SDV ONE (11:14)
[2018-07-15] MEDS ORDERED: PROMETHAZINE HCL INJ 25 MG/1 ML VIAL IV PRN (11:36)
[2018-07-15] MEDS ORDERED: DIPHENHYDRAMINE HCL 50 MG/ML VIAL IV PRN (11:36)
[2018-07-15] MEDS ORDERED: MEPERIDINE HCL/PF INJ 25 MG/1 ML DISP.SYRIN IV PRN (11:36)
[2018-07-15] MEDS ORDERED: FENTANYL CITRATE INJ/PF 100 MCG/2 ML AMPUL IV PRN ×3 (11:36)
--- NOTE | 2018-07-15 11:55 | Operative Report ---
Operative Report DATE OF SURGERY: 07/15/18 PREOPERATIVE DIAGNOSIS: Left lateral malleolus fracture left lateral malleolus fracture OPERATION: Open reduction internal fixation left lateral malleolus fracture SURGEON: SHAWNA IRIZARRY ANESTHESIA: GA TISSUE REMOVED OR ALTERED: None ESTIMATED BLOOD LOSS: 25 PROCEDURE: With the patient supine on the operative table the left lower extremities prepped and draped in a sterile fashion. Limb is elevated for exsanguination tourniquet inflated 250 torr. Longitudinal incision was made over the distal fibula and sharp dissection was carried incision subperiosteal. The exposure was consistent continued subperiosteally and the underlying fracture identified. There is a considerable amount of soft tissue between the fracture fragments. This is removed with a dental pick. The fracture was then distracted using a tenaculum distally for an anatomic reduction which is maintained using a lobster claw clamp. Subsequently a Wilbur titanium distal fibula plate is applied to the lateral surface of the fibula and secured with 3 screws distally and 3 screws proximally. The fracture reduction as well as hardware placement checked fluoroscopically and felt to be adequate. The wounds are irrigated. The closure is interrupted Vicryl followed by erick. A sterile compressive dressing followed by posterior plaster splint were applied and the patient's return to PACU in satisfactory condition.
--- NOTE | 2018-07-15 11:58 | Discharge Summary ---
Discharge Summary (SDC) - Discharge Final Diagnosis: Left lateral malleolus fracture Date of Surgery: 07/15/18 Discharge Date: 07/15/18 Condition: Good Treatment or Instructions: Touchdown weightbearing restriction left lower extremity Prescriptions: Oxycodone HCl/Acetaminophen [Percocet 5-325 mg Tablet] 1 tab PO Q6 PRN #40 tab PRN Reason: Discharge Diet: As Tolerated, Regular Respiratory Treatments at Home: Deep Breathing/Coughing Discharge Activity: Balance Activity w/Rest, No Driving, No tub bath Home Care Assistance: None Needed Report the Following to Your Physician Immediately: Shortness of Breath, Fever over 101 Degrees, Drainage-Foul Smelling
[2018-07-15] MEDS: FENTANYL CITRATE INJ/PF 100 MCG/2 ML AMPUL ONE ×2 (12:44→12:51)
[2018-07-15] MEDS ORDERED: OXYCODONE-ACETAMINOPHEN 5-325 MG TABLET ONE (13:24)
--- NOTE | 2018-07-15 13:40 | RADIOLOGY REPORT (SQ) ---
EXAM DESCRIPTION: NO CHG FLUORO; ANKLE LEFT AP/LATERAL COMPLETED DATE/TIME: 07/15/2018 1:22 pm; 07/15/2018 1:23 pm REASON FOR STUDY: LT ORIF LATERAL MALLEOLUS COMPARISON: None. FLUOROSCOPY TIME: No recorded fluoro time. 0 minutes. 2 Images saved to PACS LIMITATIONS: None. PROCEDURE: ORIF left distal fibular fracture. FINDINGS: Images document placement of a compression plate on the distal fibula. IMPRESSION: ORIF fibular fracture. Refer to operative note for further information. COMMENT: PQRS 6045F: Fluoroscopy time of the procedure is documented in the report. TECHNICAL DOCUMENTATION: JOB ID: [id number]- All Rights Reserved Reading location - IP/workstation name: [email or web address]
--- NOTE | 2018-07-15 13:40 | RADIOLOGY REPORT (SQ) ---
EXAM DESCRIPTION: NO CHG FLUORO; ANKLE LEFT AP/LATERAL COMPLETED DATE/TIME: 07/15/2018 1:22 pm; 07/15/2018 1:23 pm REASON FOR STUDY: LT ORIF LATERAL MALLEOLUS COMPARISON: None. FLUOROSCOPY TIME: No recorded fluoro time. 0 minutes. 2 Images saved to PACS LIMITATIONS: None. PROCEDURE: ORIF left distal fibular fracture. FINDINGS: Images document placement of a compression plate on the distal fibula. IMPRESSION: ORIF fibular fracture. Refer to operative note for further information. COMMENT: PQRS 6045F: Fluoroscopy time of the procedure is documented in the report. TECHNICAL DOCUMENTATION: JOB ID: [id number] [employer]- All Rights Reserved Reading location - IP/workstation name: [email or web address]
[2018-07-15 14:33] VITALS: BP 130/78
== END 2018-07-15 14:20 | disposition home or self-care (01) ==
LOC: OROUT 07:51
PROVIDERS: ATTEND Orthopaedic Surgery
DX: S82.62XA Displaced fracture of lateral malleolus of left fibula, initial encounter for closed fracture (principal); W10.9XXA Fall (on) (from) unspecified stairs and steps, initial encounter; I10 Essential (primary) hypertension
CPT/HCPCS: 36415; 85027; 81025; 80048; 73600; 27792; C1713 ×6; J2250; J0690; J1100; J3010; J1170; J2405; J2704; 01480; J3490

== ENCOUNTER 2018-08-17 15:24 | Emergency (ER) | payer MEDICAID ==
[2018-08-17] MEDS ORDERED: IBUPROFEN 800 MG TABLET PO ONE (17:14)
[2018-08-17] MEDS ORDERED: PSEUDOEPHEDRINE HCL 30 MG TABLET PO ONE (17:14)
--- NOTE | 2018-08-17 17:19 | ER Document Report ---
HPI - HPI Time Seen by Provider: 08/17/18 17:07 Onset/Duration: Gradual Quality of pain: Achy Pain Level: 4 Context: Patient presents complaining of congestion, sore throat headache body aches and fever. Patient states she has had symptoms for the past 4 days. Patient does report multiple sick contacts in the household. Associated Symptoms: Body/muscle aches, Nonproductive cough, Fever, Rhinnorhea, Sore throat Exacerbated by: Denies Relieved by: Denies Similar symptoms previously: Yes Recently seen / treated by doctor: No - ROS ROS below otherwise negative: Yes Systems Reviewed and Negative: Yes All other systems reviewed and negative - CONSTITUTIONAL Constitutional: REPORTS: Fever, Chills - EENT EENT: REPORTS: Congestion - NEURO Neurology: REPORTS: Headache - RESPIRATORY Respiratory: REPORTS: Coughing - REPRODUCTIVE Reproductive: DENIES: : - DERM Skin Color: Normal Skin Problems: None Past Medical History - General Information source: Patient - Social History Smoking Status: Never Smoker Frequency of alcohol use: None Drug Abuse: None 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 Family History: None, Other - mother with migraine FLOYD and irreg heart beats - Past Medical History Cardiac Medical History: Reports: Hx Hypertension - DURING Renal/ Medical History: Denies: Hx Peritoneal Dialysis Musculoskeletal Medical History: Denies Hx Arthritis Past Surgical History: Reports: Hx Orthopedic Surgery - Immunizations Immunizations up to date: Yes Hx Diphtheria, Pertussis, Tetanus Vaccination: Yes Vertical Provider Document - CONSTITUTIONAL Agree With Documented VS: No - Patient heart rate 110 Exam Limitations: No Limitations General Appearance: WD/WN, No Apparent Distress - INFECTION CONTROL TRAVEL OUTSIDE OF THE [place] IN LAST 30 DAYS: No - HEENT HEENT: Atraumatic, Normocephalic, Pharyngeal Tenderness. negative: Pharyngeal Exudate, Pharyngeal Erythema, Tympanic Membrane Red, Tympanic Membrane Bulging Notes: Clear rhinorrhea - NECK Neck: Normal Inspection, Supple. negative: Lymphadenopathy-Left, Lymphadenopathy-Right - RESPIRATORY Respiratory: Breath Sounds Normal, No Respiratory Distress, Chest Non-Tender - CARDIOVASCULAR Cardiovascular: Regular Rhythm, No Murmur, Tachycardia - BACK Back: Normal Inspection - MUSCULOSKELETAL/EXTREMETIES Musculoskeletal/Extremeties: MAEW, FROM, Non-Tender - NEURO Level of Consciousness: Awake, Alert, Appropriate Motor/Sensory: No Motor Deficit - DERM Integumentary: Warm, Dry, No Rash Course - Re-evaluation Re-evalutation: 08/17/18 18:28 Patient positive for influenza type A. Patient has had symptoms for greater than 4 days. Discussed efficacy and side effect profile Tamiflu, patient declines excepting prescription at this time. Discussed worsening symptoms that patient to return immediately for. Patient nontoxic in appearance and stable for discharge. - Vital Signs Vital signs: Temp Pulse Resp BP Pulse Ox 100.6 F H 132 H 18 128/77 H 99 08/17/18 15:34 08/17/18 15:34 08/17/18 15:34 08/17/18 15:34 08/17/18 15:34 - Laboratory Laboratory results interpreted by me: 08/17/18 18:28 Labs- Entire Visit 08/17/18 08/17/18 17:22 17:22 Influenza A (Rapid) POSITIVE Influenza B (Rapid) NEGATIVE Group A Strep Rapid NEGATIVE Discharge - Discharge Clinical Impression: Influenza A Fever Qualifiers: Fever type: unspecified Qualified Code(s): R50.9 - Fever, unspecified Condition: Stable Disposition: HOME, SELF-CARE Instructions: Acetaminophen, Influenza ([facility]) Additional Instructions: Return immediately for any new or worsening symptoms Followup with your primary care provider, call tomorrow to make a followup appointment Prescriptions: Guaifenesin/Pseudoephedrne HCl [Mucinex D ER 1,200-120 mg Tab] 1 each PO Q12 PRN #12 tab.er.12h PRN Reason: Naproxen [Naprosyn 250 Nmg Tablet] 1 tab PO BID #14 tablet Forms: Return to Work Referrals: [facility] [Provider Group] - Follow up as needed
[2018-08-17 17:55] LABS: A TYPE INFLUENZA AG POSITIVE (NEGATIVE); B INFLUENZA AG NEGATIVE (NEGATIVE)
[2018-08-17 18:41] VITALS: BP 110/71
== END 2018-08-17 18:43 | disposition home or self-care (01) ==
LOC: ER 15:24
DX: J10.1 Influenza due to other identified influenza virus with other respiratory manifestations (principal); R50.9 Fever, unspecified; R09.81 Nasal congestion; R51 Headache; M79.10 Myalgia, unspecified site; R05 Cough; J34.89 Other specified disorders of nose and nasal sinuses
CPT/HCPCS: 99283; 87070; 87880; 87804; J3490